=== PATIENT | female | born 1995 | race Caucasian/White ===

== ENCOUNTER → 2017-01-20 | Outpatient (CLI) | payer BC ==
[2017-01-20 11:53] LABS: CH 29.6; HCT 36.5 % (34.0-46.0); HDW 2.56; HGB 12.3 gm/dL (11.4-16.0); MCH 29.6 pg (25.0-35.0); MCHC 33.8 g/dL (31.0-37.0); MCV 87.6 fL (80.0-100.0); Mean Platelet Volume 6.7; RBC 4.16 m/uL (3.80-5.40); RDW 13.4 % (11.5-15.5); WBC 9.5 k/uL (3.8-10.6)
== END | disposition home or self-care (01) ==
LOC: LABWHC1 10:24
PROVIDERS: ATTEND Obstetrics & Gynecology
DX: Z34.82 Encounter for supervision of other normal pregnancy, second trimester (principal); Z3A.00 Weeks of gestation of pregnancy not specified
CPT/HCPCS: 36415; 82950; 85027

== ENCOUNTER → 2017-01-26 | Outpatient (CLI) | payer BC ==
[2017-01-26 12:29] LABS: Glucose 3 Hour, Gest 118 mg/dL
== END | disposition home or self-care (01) ==
LOC: LABWHC1 08:17
PROVIDERS: ATTEND Obstetrics & Gynecology
DX: O24.419 Gestational diabetes mellitus in pregnancy, unspecified control (principal); Z3A.00 Weeks of gestation of pregnancy not specified
CPT/HCPCS: 36415; 82951; 82952

== ENCOUNTER 2017-04-19 06:10 | Inpatient (IN) | payer BC ==
[2017-04-19] MEDS ORDERED: CARBOPROST TROMETHAMINE 250 MCG/ML 1 ML AMP IM PRN (06:25)
[2017-04-19] MEDS ORDERED: OXYTOCIN 10 UNIT/ML 1 ML VIAL IM PRN (06:25)
[2017-04-19] MEDS ORDERED: LIDOCAINE 1% (PF) 10 MG/ML (30 ML SDV) SQ PRN (06:25)
[2017-04-19] MEDS ORDERED: METHYLERGONOVINE 0.2 MG/ML 1 ML AMP IM PRN (06:25)
[2017-04-19] MEDS ORDERED: TERBUTALINE 1 MG/ML VIAL SQ PRN (06:25)
[2017-04-19] MEDS ORDERED: OXYTOCIN 20 UNITS/1000 ML NS 1,000 ML IV SCH ×2 (06:30→13:15)
[2017-04-19 06:33] VITALS: BMI 29.2
[2017-04-19] MEDS: LACTATED RINGERS 1,000 ML IV SCH ×2 (06:36→11:00)
[2017-04-19 06:37] LABS: Basophils % (A) 0 %; CH 28.4; CHCM 34.2; Eosinophils # (A) 0.1 k/uL (0-0.7); Eosinophils % (A) 1 %; HCT 37.4 % (34.0-46.0); HGB 13.2 gm/dL (11.4-16.0); Luc # (Auto) 0.18; Luc % (Auto) 2; Lymphocytes # (A) 2.5 k/uL (1.0-4.8); Lymphocytes % (A) 25 %; MCH 29.5 pg (25.0-35.0); MCHC 35.4 g/dL (31.0-37.0); MCV 83.3 fL (80.0-100.0); Mean Platelet Volume 8.3; Monocytes # (A) 0.5 k/uL (0-1.0); Monocytes % (A) 5 %; Neutrophils # (A) 6.8 k/uL (1.3-7.7); Neutrophils % (A) 67 %; RBC 4.49 m/uL (3.80-5.40); RDW 14.4 % (11.5-15.5); WBC 10.2 k/uL (3.8-10.6); WBC (Perox) 9.84
--- NOTE | 2017-04-19 07:30 | P.HPOB ---
History of Present Illness H&P Date: 04/19/17 Chief Complaint: induction of labor 22 year old presents at 39 weeks and 5 days for induction of labor. Her cervix is 2-3 cm dilated, 80% effaced, -2 station. She is baldemar every 2- 3 minutes. heart tones 130-135 with moderate variability and reactive. Review of Systems All systems: negative Constitutional: Denies chills, Denies fever Eyes: denies blurred vision, denies pain Ears, nose, mouth and throat: Denies headache, Denies sore throat Cardiovascular: Denies chest pain, Denies shortness of breath Respiratory: Denies cough Gastrointestinal: Denies abdominal pain, Denies diarrhea, Denies nausea, Denies vomiting Genitourinary: Denies dysuria, Denies hematuria Musculoskeletal: Denies myalgias Integumentary: Denies pruritus, Denies rash Neurological: Denies numbness, Denies weakness Psychiatric: Denies anxiety, Denies depression Endocrine: Denies fatigue, Denies weight change Past Medical History Past Medical History: No Reported History Additional Past Medical History / Comment(s): Obstetric history: First and see was a spontaneous . This is her second and she's had care with me since 22 weeks. Blood type O+, antibodies negative, rubella nonimmune, VDRL nonreactive, hepatitis B negative, failed her 1 hour glucose tolerance test but normal 3 hour. GBS negative. History of Any Multi-Drug Resistant Organisms: None Reported Additional Past Surgical History / Comment(s): [place] Teeth Extraction Past Anesthesia/Blood Transfusion Reactions: No Reported Reaction Past Psychological History: No Psychological Hx Reported Smoking Status: Never smoker Past Alcohol Use History: None Reported Past Drug Use History: None Reported - Past Family History Mother Family Medical History: Hypertension Father Family Medical History: Hypertension Medications and Allergies Home Medications Medication Instructions Recorded Confirmed Type 78/Iron/Folate 1/Dha 1 tab PO DAILY 04/19/17 04/19/17 History [Prenate Dha Softgel] Allergies Allergy/AdvReac Type Severity Reaction Status Date / Time No Known Allergies Allergy Verified 04/19/17 06:23 Exam Osteopathic Statement: *. No significant issues noted on an osteopathic structural exam other than those noted in the History and Physical/Consult. - Vital Signs Vital signs: Vital Signs Temp Pulse Resp BP 04/19/17 06:27 97.1 F L 95 16 138/97 Intake and Output 04/18/17 04/19/17 04/19/17 22:59 06:59 14:59 Other: Weight 74.843 kg Heart: Regular rate and rhythm Lungs: Clear to auscultation bilaterally Abdomen: Soft, nontender Extremities: Negative Homans sign Results Result Diagrams: 04/19/17 06:25 Assessment and Plan (1) Normal labor Status: Acute Plan: 1. Admit to family place 2. Amniotomy and Pitocin for induction of labor 3. Anticipate normal vaginal delivery
[2017-04-19] MEDS ORDERED: SODIUM CHLORIDE 0.9% 100 ML BAG ONE (11:01)
[2017-04-19] MEDS ORDERED: BUPIVACAINE (PF) 0.25% 30 ML VIAL ONE (11:01)
[2017-04-19] MEDS ORDERED: fentaNYL (PF) 50 MCG/ML 5 ML AMP ONE (11:01)
[2017-04-19] MEDS ORDERED: BUPIVACAINE (PF) 0.25% 25 ML, fentaNYL (PF) 200 MCG in SODIUM CHLORIDE 0.9% 71 ML EPIDURAL ONE (11:53)
[2017-04-19] MEDS ORDERED: diphenhydrAMINE 50 MG/ML 1 ML VIAL IVP PRN ×2 (13:15)
[2017-04-19] MEDS ORDERED: WITCH HAZEL 1 EACH MED..PAD TOPICAL PRN (13:15)
[2017-04-19] MEDS ORDERED: diphenhydrAMINE 25 MG CAP PO PRN (13:15)
[2017-04-19] MEDS ORDERED: Acetaminophen-Codeine 300-30mg TAB PO PRN ×2 (13:15)
[2017-04-19] MEDS ORDERED: ACETAMINOPHEN TAB 325 MG TAB PO PRN (13:15)
[2017-04-19] MEDS ORDERED: BENZOCAINE/MENTHOL SPRAY 1 GM/SPRAY AEROSOL TOPICAL PRN (13:15)
[2017-04-19] MEDS ORDERED: ZOLPIDEM 5 MG TAB PO PRN (13:15)
[2017-04-19] MEDS ORDERED: LANOLIN CREAM 5 GM TUBE TOPICAL PRN (13:15)
[2017-04-19] MEDS ORDERED: SIMETHICONE 80 MG CHEWABLE PO PRN (13:15)
[2017-04-19] MEDS ORDERED: diphenhydrAMINE 50 MG CAP PO PRN (13:15)
[2017-04-19] MEDS ORDERED: HYDROCORTISONE 2.5% RECTAL CREAM 30 GM TUBE RECTAL PRN (13:15)
--- NOTE | 2017-04-19 13:19 | P.PROBDLV ---
Vaginal Delivery Note - . Vaginal Delivery Note: 22-year-old presents at 39 weeks and 5 days for induction of labor. Her cervix is 2-3 cm dilated, 70% effaced, -2 station. She is baldemar irregularly. heart tones 130-135 with moderate variability and reactive. Pitocin was started and amniotomy was performed at 7:21 AM, clear fluid noted. She progressed about 4 cm and got an epidural. Her cervix was completely dilated at 12:38 PM, she pushed and delivered a viable female infant over midline episiotomy under epidural anesthesia at 12:59 PM. Head delivered OA, anterior shoulder which was the right shoulder delivered gentle downward traction followed by posterior shoulder and rest of body. Nose and mouth bulb suctioned, cord clamped and cut, placed on mother's abdomen. Apgars 9, 9 , weight weight 7 lbs. 2 oz. Placenta delivered spontaneously, intact with three-vessel cord at 1301. Vagina, cervix, and perineum were inspected. Second -degree midline episiotomy was repaired with 3-0 and 2-0 Vicryl. Estimated blood loss 200 mL. Mother and baby in stable condition.
[2017-04-19] MEDS: IBUPROFEN 600 MG TAB PO PRN (19:52)
[2017-04-19] MEDS: SENNOSIDES-DOCUSATE SODIUM 1 EACH TAB PO SCH (19:52)
[2017-04-20] MEDS: IBUPROFEN 600 MG TAB PO PRN (08:49)
[2017-04-20] MEDS: SENNOSIDES-DOCUSATE SODIUM 1 EACH TAB PO SCH (08:49)
[2017-04-20 09:33] VITALS: BP 127/77; PULSE 83; RESP 18; TEMP 98.1
--- NOTE | 2017-04-20 13:13 | P.DS ---
Providers Date of admission: 04/19/17 06:10 Expected date of discharge: 04/20/17 Attending physician: Lizabeth Tovar Primary care physician: Stated None - Discharge Diagnosis(es) (1) Normal labor Current Visit: Yes Status: Resolved (2) Normal vaginal delivery Current Visit: Yes Status: Acute Hospital Course: Pt presented for induction of labor. She underwent a normal vaginal delivery and had an uncomplicated post course. She denies N/V, F/C, CP, SOB,calf pain. She will be discharged home PPD #1 in stable condition to follow up with me in 6 weeks. Plan - Discharge Summary New Discharge Prescriptions: New Ibuprofen [Motrin] 600 mg PO Q6HR PRN #30 tab PRN Reason: Mild Pain Or Fever >= 100.5 No Action 78/Iron/Folate 1/Dha [Prenate Dha Softgel] 1 tab PO DAILY Discharge Medication List 78/Iron/Folate 1/Dha [Prenate Dha Softgel] 1 tab PO DAILY 04/19/17 [ History] Ibuprofen [Motrin] 600 mg PO Q6HR PRN #30 tab 04/20/17 [Rx] Follow up Appointment(s)/Referral(s): Lizabeth Tovar DO [Doctor of Osteopathic Medicine] - 6 Weeks Discharge Disposition: HOME SELF-CARE
== END 2017-04-20 14:20 | disposition home or self-care (01) | DRG 775 ==
LOC: 4FBP 06:10
PROVIDERS: ADMIT Obstetrics & Gynecology; ATTEND Obstetrics & Gynecology
PROC: 0W8NXZZ Division of Female Perineum, External Approach (ICD-10-PCS; principal; 2017-04-19)
PROC: 3E033VJ Introduction of Other Hormone into Peripheral Vein, Percutaneous Approach (ICD-10-PCS; principal; 2017-04-19)
PROC: 10E0XZZ Delivery of Products of Conception, External Approach (ICD-10-PCS; principal; 2017-04-19)
PROC: 00HU33Z Insertion of Infusion Device into Spinal Canal, Percutaneous Approach (ICD-10-PCS; principal; 2017-04-19)
PROC: 10907ZC Drainage of Amniotic Fluid, Therapeutic from Products of Conception, Via Natural or Artificial Opening (ICD-10-PCS; principal; 2017-04-19)
PROC: 3E0R3CZ (ICD-10-PCS; principal; 2017-04-19)
DX: O80 Encounter for full-term uncomplicated delivery (principal); Z37.0 Single live birth; Z3A.39 39 weeks gestation of pregnancy
CPT/HCPCS: 85025; 88307

== ENCOUNTER 2021-04-28 06:00 | Inpatient (IN) | payer BC ==
[2021-04-28] MEDS ORDERED: LIDOCAINE 0.5% (PF) 5 MG/ML (50 ML SDV) SQ PRN (06:24)
[2021-04-28] MEDS ORDERED: TERBUTALINE 1 MG/ML VIAL SQ PRN (06:24)
[2021-04-28] MEDS ORDERED: METHYLERGONOVINE 0.2 MG/ML 1 ML AMP IM PRN (06:24)
[2021-04-28] MEDS ORDERED: CARBOPROST TROMETHAMINE 250 MCG/ML 1 ML AMP IM PRN (06:24)
[2021-04-28] MEDS ORDERED: OXYTOCIN 10 UNIT/ML 1 ML VIAL IM PRN (06:24)
[2021-04-28] MEDS ORDERED: OXYTOCIN 30 UNITS/500 ML NS 30 UNIT in SALINE 1 500ML.BAG IV SCH (06:30)
[2021-04-28] MEDS: LACTATED RINGERS 1,000 ML IV SCH ×2 (06:57→12:02)
[2021-04-28 08:11] LABS: Basophils % (A) 0 %; Eosinophils # (A) 0.1 k/uL (0-0.7); Eosinophils % (A) 1 %; HCT 40.6 % (34.0-46.0); HGB 13.5 gm/dL (11.4-16.0); Lymphocytes # (A) 1.8 k/uL (1.0-4.8); Lymphocytes % (A) 24 %; MCHC 33.2 g/dL (31.0-37.0); MCV 90.4 fL (80.0-100.0); Monocytes # (A) 0.4 k/uL (0-1.0); Monocytes % (A) 6 %; Neutrophils # (A) 4.9 k/uL (1.3-7.7); Neutrophils % (A) 67 %; Platelet Count 197 k/uL (150-450); RBC 4.49 m/uL (3.80-5.40); RDW 14.3 % (11.5-15.5); WBC 7.3 k/uL (3.8-10.6)
[2021-04-28] MEDS ORDERED: fentaNYL (PF) 50 MCG/ML 5 ML AMP ONE (11:10)
[2021-04-28] MEDS ORDERED: SODIUM CHLORIDE 0.9% 100 ML BAG ONE (11:10)
[2021-04-28] MEDS ORDERED: ROPIVACAINE 5MG/ML 20ML VIAL ONE (11:10)
[2021-04-28] MEDS ORDERED: ACETAMINOPHEN TAB 325 MG TAB PO PRN (15:45)
[2021-04-28] MEDS ORDERED: diphenhydrAMINE 50 MG CAP PO PRN (15:45)
[2021-04-28] MEDS ORDERED: BENZOCAINE/MENTHOL SPRAY 1 GM/SPRAY AEROSOL TOPICAL PRN (15:45)
[2021-04-28] MEDS ORDERED: LANOLIN CREAM 5 GM TUBE TOPICAL PRN (15:45)
[2021-04-28] MEDS ORDERED: HYDROCORTISONE 2.5% RECTAL CREAM 30 GM TUBE RECTAL PRN (15:45)
[2021-04-28] MEDS ORDERED: ZOLPIDEM 5 MG TAB PO PRN (15:45)
[2021-04-28] MEDS ORDERED: SIMETHICONE 80 MG CHEWABLE PO PRN (15:45)
[2021-04-28] MEDS ORDERED: diphenhydrAMINE 25 MG CAP PO PRN (15:45)
--- NOTE | 2021-04-28 17:35 | P.HPOB ---
History of Present Illness H&P Date: 04/28/21 Chief Complaint: IUP at 39-0/7 weeks This is a 26-year-old at 39-0/7 weeks that presents to labor and delivery for elective induction of labor. Patient does live approximate 1 hour from the hospital and requested induction. Patient has been receiving routine care which has been contacted by diagnosis of gestational diabetes which was well-controlled with diet. Patient did test positive for COVID-19 in September 2020. She has been undergoing nonstress test and testing for this diagnosis. Patient notes good movement denies vaginal bleeding or loss of fluid. Patient has a blood type of O+, rubella status immune, hep Jeni surface antigen negative, HIV negative, group beta strep culture was negative. Review of Systems Constitutional: Denies chills, Denies fatigue, Denies fever Ears, nose, mouth and throat: Denies headache Cardiovascular: Reports leg edema Respiratory: Denies dyspnea Gastrointestinal: Denies constipation, Denies diarrhea, Denies nausea, Denies vomiting Genitourinary: Reports Past Medical History Past Medical History: No Reported History Additional Past Medical History / Comment(s): Gestational diabetes History of Any Multi-Drug Resistant Organisms: None Reported Additional Past Surgical History / Comment(s): [place] teeth Past Anesthesia/Blood Transfusion Reactions: No Reported Reaction Past Psychological History: No Psychological Hx Reported Smoking Status: Never smoker Past Alcohol Use History: None Reported Past Drug Use History: None Reported - Past Family History Mother Family Medical History: Hypertension Father Family Medical History: Hypertension Medications and Allergies Home Medications Medication Instructions Recorded Confirmed Type Aspirin [Adult Low Dose Aspirin EC] 81 mg PO DAILY 03/10/21 04/28/21 History Pnv No.95/Ferrous Fum/Folic AC 1 each PO DAILY 03/10/21 04/28/21 History [ Multivitamin Tablet] Allergies Allergy/AdvReac Type Severity Reaction Status Date / Time No Known Allergies Allergy Verified 04/28/21 06:23 Exam Osteopathic Statement: *. No significant issues noted on an osteopathic structural exam other than those noted in the History and Physical/Consult. Vital Signs Temp Pulse Resp BP Pulse Ox 04/28/21 16:10 76 16 129/65 04/28/21 15:55 88 16 144/76 04/28/21 15:40 80 16 128/79 04/28/21 15:25 75 16 127/85 04/28/21 15:10 86 16 133/82 04/28/21 06:22 97.8 F 81 16 120/78 99 Intake and Output 04/28/21 04/28/21 04/28/21 06:59 14:59 22:59 Intake Total 175.067 Balance 175.067 Intake: Intake, IV Titration 175.067 Amount Oxytocin 30 Units/500 ml 175.067 Ns 30 unit In Saline 1 500ml.bag @ Per Protocol IV .Q0M [facility] Rx#:[id number] Other: Weight 76.204 kg Targeted physical exam was performed and state in general this a well-nourished well-developed female in no acute distress, breathing is noted to be nonlabored, heart has regular rate and rhythm, abdomen is gravid, on cervical exam she is 3/70/-2, amniotomy is performed and clear fluid was obtained. heart tones returned be category 1 and she is baldemar irregularly. Results Result Diagrams: 04/28/21 07:14 Assessment and Plan (1) Term Current Visit: Yes Status: Acute Code(s): Z34.90 - ENCNTR FOR SUPRVSN OF NORMAL , UNSP, UNSP TRIMESTER SNOMED Code(s): 51256675 (2) GDM, class A1 Current Visit: Yes Status: Acute Code(s): O24.410 - GESTATIONAL DIABETES MELLITUS IN , DIET CONTROLLED SNOMED Code(s): 03416392 Plan: 26-year-old 011 at 39-0/7 weeks that presents to labor and delivery for scheduled induction of labor. Patient does live presented in our from the hospital and requested induction of labor. Patient will be admitted to labor and delivery and Pitocin induction of labor was begun. Patient does desire epidural placement when appropriate. Anticipate spontaneous vaginal delivery l ater today.
--- NOTE | 2021-04-28 17:37 | P.PROBDLV ---
Vaginal Delivery Note - . Vaginal Delivery Note: This 26-year-old 011 at 39 0/7 weeks presented to labor and delivery for scheduled induction of labor. Patient was admitted and Pitocin induction of labor was begun per hospital protocol. Once regular contractions were appreciated amniotomy is performed and clear fluid was obtained. Patient became uncomfortable and did request epidural placement. Epidural was placed without difficulty by the anesthesia department. Patient progressed to complete began pushing and had a normal spontaneous vaginal delivery of a viable female infant at 1457, weight of 8 lbs. 3 oz. with Apgars of 9, 9 at one and 5 minutes respectively. After two-minute delay the umbilical cord was doubly clamped and cut and was handed to the maternal abdomen. The placenta was then delivered spontaneously intact with three-vessel cord being noted. On inspection the patient's vaginal vault a second-degree midline vaginal laceration was appreciated. This laceration was repaired in usual fashion with 3-0 repeat. Hemostasis was appreciated afterwards. Uterus is noted to be firm and below the umbilicus. Estimated blood loss 300 mL. Patient and infant tolerated delivery well and are resting comfortably. All counts are correct 2 at the end of the delivery.
[2021-04-28] MEDS: SENNOSIDES-DOCUSATE SODIUM 1 EACH TAB PO SCH (19:40)
[2021-04-28] MEDS: IBUPROFEN 600 MG TAB PO PRN (22:01)
--- NOTE | 2021-04-29 07:49 | P.DS ---
Providers Date of admission: 04/28/21 06:04 Expected date of discharge: 04/29/21 Attending physician: Peg Falk Primary care physician: Stated None - Discharge Diagnosis(es) (1) Term Current Visit: Yes Status: Acute (2) GDM, class A1 Current Visit: Yes Status: Acute (3) Status post vaginal delivery Current Visit: Yes Status: Acute (4) Obstetric vaginal laceration with second degree perineal laceration Current Visit: Yes Status: Acute Hospital Course: This is a 26-year-old 011 that presented to labor and delivery at 39-0/7 w [facility] for scheduled induction of labor. Patient does live approximately 1 hour from the hospital and requested elective induction. Patient was admitted to labor and delivery and Pitocin augmentation of labor was begun per hospital protocol. Patient underwent amniotomy which revealed clear fluid. Patient did become uncomfortable and did request epidural placement. Epidural was placed without difficulty by the anesthesia department. Patient made progress throughout labor, eventually becoming complete and pushing. Patient had a normal spontaneous vaginal delivery of a viable female at 1457, weight of 8 lbs. 3 oz., Apgars of 9, 9 at one and 5 minutes respectively. Patient did sustain a second-degree vaginal laceration which was repaired in the usual fashion with 3-0 Rapide. Patient's course has been uneventful. On this day #1 she is a billing and voiding without difficulty. She is tolerating a regular diet without nausea or vomiting. She states her pain is well-controlled. She would like discharge home at 24 hours if possible. Patient Condition at Discharge: Good Plan - Discharge Summary Discharge Rx Participant: No New Discharge Prescriptions: No Action Pnv No.95/Ferrous Fum/Folic AC [ Multivitamin Tablet] 1 each PO DAILY Aspirin [Adult Low Dose Aspirin EC] 81 mg PO DAILY Discharge Medication List Aspirin [Adult Low Dose Aspirin EC] 81 mg PO DAILY 03/10/21 [History] Pnv No.95/Ferrous Fum/Folic AC [ Multivitamin Tablet] 1 each PO DAILY 03/10/21 [History] Follow up Appointment(s)/Referral(s): Peg Falk DO [Doctor of Osteopathic Medicine] - 4 Weeks Patient Instructions/Handouts: Vaginal Delivery (GEN), Vaginal Delivery (DC) Discharge Disposition: HOME SELF-CARE
[2021-04-29] MEDS: SENNOSIDES-DOCUSATE SODIUM 1 EACH TAB PO SCH (08:01)
[2021-04-29] MEDS: IBUPROFEN 600 MG TAB PO PRN ×2 (08:01→14:04)
[2021-04-29 15:31] VITALS: BP 106/64; PULSE 87; RESP 17; TEMP 98.3
== END 2021-04-29 17:00 | disposition home or self-care (01) | DRG 807 ==
LOC: MERGE 06:00 → 4FBP 06:04
PROVIDERS: ADMIT Obstetrics & Gynecology Obstetrics; ATTEND Obstetrics & Gynecology Obstetrics
PROC: 00HU33Z Insertion of Infusion Device into Spinal Canal, Percutaneous Approach (ICD-10-PCS; principal; 2021-04-28)
PROC: 10907ZC Drainage of Amniotic Fluid, Therapeutic from Products of Conception, Via Natural or Artificial Opening (ICD-10-PCS; principal; 2021-04-28)
PROC: 3E033VJ Introduction of Other Hormone into Peripheral Vein, Percutaneous Approach (ICD-10-PCS; principal; 2021-04-28)
PROC: 0KQM0ZZ Repair Perineum Muscle, Open Approach (ICD-10-PCS; principal; 2021-04-28)
PROC: 10E0XZZ Delivery of Products of Conception, External Approach (ICD-10-PCS; principal; 2021-04-28)
PROC: 3E0R3NZ Introduction of Analgesics, Hypnotics, Sedatives into Spinal Canal, Percutaneous Approach (ICD-10-PCS; principal; 2021-04-28)
DX: O24.420 Gestational diabetes mellitus in childbirth, diet controlled (principal); Z37.0 Single live birth; O70.1 Second degree perineal laceration during delivery; Z3A.39 39 weeks gestation of pregnancy; Z79.82 Long term (current) use of aspirin; Z82.49 Family history of ischemic heart disease and other diseases of the circulatory system; Z86.16 Personal history of COVID-19
CPT/HCPCS: 85025; 86850; 86900; 86901